=== PATIENT | male | born 1965 | race Caucasian/White ===

== ENCOUNTER 2021-03-23 15:51 | Emergency (ER) | payer MEDICARE, OTHER ==
[~2021-03-23] VITALS: Ht 167.6 cm; Wt 68.0 kg
[2021-03-23 16:17] LABS: BASOPHILS ABSOLUTE AUTO 0.02 K/mm3 (0.00-0.23); BASOPHILS PERCENT AUTO 0 % (0-2); EOSINOPHILS ABSOLUTE AUTO 0.05 K/mm3 (0.00-0.68); EOSINOPHILS PERCENT AUTO 1 % (0-6); Hematocrit 37.6 % (37.0-53.0); IMMATURE GRAN ABSOLUTE AUTO 0.01 K/mm3 (0.00-0.10); IMMATURE GRAN PERCENT AUTO 0 % (0-1); LYMPHOCYTES ABSOLUTE AUTO 1.43 K/mm3 (0.84-5.20); LYMPHOCYTES PERCENT AUTO 30 % (21-46); MONOCYTES ABSOLUTE AUTO 0.53 K/mm3 (0.16-1.47); MONOCYTES PERCENT AUTO 11 % (4-13); Mean Corpuscular HGB 31.1 pg (26.0-34.0); Mean Corpuscular HGB Conc 34.6 g/dL (31.5-36.5); Mean Corpuscular Volume 90 fL (80-100); Mean Platelet Volume 10.1 fL (9.1-12.4); NEUTROPHILS ABSOLUTE AUTO 2.76 K/mm3 (1.96-9.15); NEUTROPHILS PERCENT AUTO 58 % (41-73); Platelet Count 202 K/mm3 (150-400); RDW Coefficient Variation 11.9 % (11.7-14.2); RDW Standard Deviation 38.6 fL (35.1-46.3); Red Blood Cell Count 4.18 M/mm3 (4.30-5.90)
[2021-03-23] MEDS ORDERED: ATORVASTATIN CA20 MG PO (16:19)
[2021-03-23] MEDS ORDERED: NOVOLOG100 UNIT/2 (16:19)
[2021-03-23] MEDS ORDERED: Prinivil10 MG PO (16:19)
[2021-03-23] MEDS ORDERED: Synthroid/Levo0.2 MG PO (16:20)
[2021-03-23] MEDS ORDERED: HYDROCODONE-AC1 EAC7 PO (16:20)
[2021-03-23 16:33] LABS: International Normalized Ratio 0.9; Prothrombin Time Results 9.8 Sec (9.7-11.5)
[2021-03-23 16:41] LABS: Alanine Aminotransfer (ALT/SGP 34 U/L (12-78); Albumin, Blood 3.4 g/dL (3.4-5.0); Alk Phos 114 U/L (50-136); Anion Gap 5 mmol/L (6-16); Aspartate Aminotrans (AST/SGOT 24 U/L (12-37); Bilirubin, Total <0.1 mg/dL (0.1-1.0); Blood Urea Nitrogen 25 mg/dL (8-24); CO2, Blood 24 mmol/L (21-32); Calcium, Blood 8.7 mg/dL (8.5-10.1); Chloride, Blood 106 mmol/L (98-108); Creatinine, Blood 1.04 mg/dL (0.60-1.20); Globulin, Blood 3.5 g/dL (2.2-4.0); Glomerular Filtration Rate >60 (60-); Glucose, Blood 155 mg/dL (70-99); Potassium, Blood 4.6 mmol/L (3.5-5.5); Sodium, Blood 135 mmol/L (136-145); Total Protein, Blood 6.9 g/dL (6.4-8.2)
== END 2021-03-23 18:01 | disposition home or self-care (01) ==
LOC: ER 15:51
PROVIDERS: Physician Assistant
DX: G45.9 Transient cerebral ischemic attack, unspecified (principal); R13.10 Dysphagia, unspecified; E11.9 Type 2 diabetes mellitus without complications; Z79.899 Other long term (current) drug therapy; Z79.4 Long term (current) use of insulin; Z87.442 Personal history of urinary calculi
CPT/HCPCS: 36415; 70450; 80053; 85025; 85610; 93005; 93010; 99284-25

== ENCOUNTER 2021-11-17 21:27 | Emergency (ER) | payer MEDICARE, OTHER ==
[~2021-11-17] VITALS: Ht 167.6 cm; Wt 68.0 kg
[~2021-11-17 21:27] MED LIST: ATORVASTATIN CA20 MG PO; HYDROCODONE-AC1 EAC7 PO; NOVOLOG100 UNIT/2; Prinivil10 MG PO; Synthroid/Levo0.2 MG PO
[2021-11-17] MEDS ORDERED: BUPRENORPHINE1 EAC7 TD (23:45)
[2021-11-17] MEDS ORDERED: ESCI10 PO (23:45)
[2021-11-17] MEDS ORDERED: PLAVIX75 MG PO (23:45)
[2021-11-18] MEDS ORDERED: Crutch1 EACH XX (02:28)
[2021-11-21] MEDS ORDERED: HYDR1TAB94 PO (09:47)
== END 2021-11-18 02:16 | disposition home or self-care (01) ==
LOC: ER 21:27
DX: S82.002A Unspecified fracture of left patella, initial encounter for closed fracture (principal); E11.9 Type 2 diabetes mellitus without complications; Z79.4 Long term (current) use of insulin; Z79.899 Other long term (current) drug therapy; Z87.442 Personal history of urinary calculi; Z86.73 Personal history of transient ischemic attack (TIA), and cerebral infarction without residual deficits; W11.XXXA Fall on and from ladder, initial encounter
CPT/HCPCS: 29505; 36415; 73562-LT; 73700; 96374; 96375; 99284-25; A9270; J2270; J2405

== ENCOUNTER 2022-07-29 08:37 | Inpatient (IN) | payer MEDICARE, OTHER ==
[~2022-07-29] VITALS: Ht 167.6 cm; Wt 64.6 kg
[~2022-07-29 08:37] MED LIST changes: +BUPRENORPHINE1 EAC7 TD; +Crutch1 EACH XX; +ESCI10 PO; +HYDR1TAB94 PO; +PLAVIX75 MG PO
[2022-07-29 09:15] LABS: Source, Urine Clean Catch
[2022-07-29 09:19] LABS: Appearance, Urine Clear (Clear); Bilirubin, Urine Neg (Neg); Blood, Urine Neg (Neg); Color, Urine Yellow (P-Yellow); Glucose Qualitative, Urine 4+ (Neg); Ketones, Urine 4+ (Neg); Leukocyte Esterase, Urine Neg (Neg); Nitrite, Urine Neg (Neg); Protein, Urine 1+ (Neg); Specific Gravity, Urine 1.025 (1.003-1.022); Urobilinogen, Urine NORM (Normal)
[2022-07-29 10:12] LABS: BASOPHILS ABSOLUTE AUTO 0.04 K/mm3 (0.00-0.23); BASOPHILS PERCENT AUTO 0 % (0-2); EOSINOPHILS PERCENT AUTO 0 % (0-6); Hemoglobin 10.5 g/dL (13.5-17.5); IMMATURE GRAN ABSOLUTE AUTO 0.27 K/mm3 (0.00-0.10); IMMATURE GRAN PERCENT AUTO 1 % (0-1); LYMPHOCYTES ABSOLUTE AUTO 0.75 K/mm3 (0.84-5.20); LYMPHOCYTES PERCENT AUTO 3 % (21-46); MONOCYTES ABSOLUTE AUTO 1.25 K/mm3 (0.16-1.47); MONOCYTES PERCENT AUTO 6 % (4-13); Mean Corpuscular HGB 30.9 pg (26.0-34.0); Mean Corpuscular HGB Conc 32.8 g/dL (31.5-36.5); Mean Corpuscular Volume 94 fL (80-100); Mean Platelet Volume 10.9 fL (9.1-12.4); NEUTROPHILS ABSOLUTE AUTO 20.46 K/mm3 (1.96-9.15); NEUTROPHILS PERCENT AUTO 90 % (41-73); Platelet Count 429 K/mm3 (150-400); RDW Coefficient Variation 12.1 % (11.7-14.2); RDW Standard Deviation 41.9 fL (35.1-46.3); White Blood Cell Count 22.77 K/mm3 (4.00-11.30)
[2022-07-29 10:22] LABS: Base Excess Venous -5.9 mmol/L; PCO2 Venous 35.2 mmHg (38-42); PO2 Venous 75.5 mmHg (38-42); pH Blood Venous 7.36 (7.34-7.37)
[2022-07-29] MEDS ORDERED: BASAGLAR K100 UNIT/8 (10:24)
[2022-07-29] MEDS ORDERED: OMEP20ER PO (10:24)
[2022-07-29] MEDS ORDERED: DEPO-TESTO200 MG/18 (10:24)
[2022-07-29] MEDS ORDERED: OXYCODONE-ACET1 EAC3 PO (10:25)
[2022-07-29] MEDS ORDERED: ESCI20 PO (10:26)
[2022-07-29] MEDS ORDERED: ATORVASTATIN CA40 MG PO (10:27)
[2022-07-29] MEDS ORDERED: SYNTHROID50 MC1 PO (10:29)
[2022-07-29 10:45] LABS: Albumin, Blood 3.5 g/dL (3.4-5.0); Albumin/Globulin Ratio 1.2 (0.8-1.8); Bilirubin, Total 0.7 mg/dL (0.1-1.0); Bun/Creatinine Ratio 30.5 (12.0-20.0); Calcium, Blood 12.3 mg/dL (8.5-10.1); Creatinine, Blood 2.49 mg/dL (0.60-1.20); Potassium, Blood 5.8 mmol/L (3.5-5.5); Total Protein, Blood 6.5 g/dL (6.4-8.2)
[2022-07-29 12:32] LABS: Influenza A, PCR NEGATIVE (NEGATIVE); Influenza B, PCR NEGATIVE (NEGATIVE); Resp Syncytial Virus, PCR NEGATIVE (NEGATIVE); SARS-Cov-2 (COVID-19) PCR, MMC NEGATIVE (NEGATIVE)
[2022-07-29 13:41] LABS: Bun/Creatinine Ratio 32.1 (12.0-20.0); Calcium, Blood 10.6 mg/dL (8.5-10.1); Creatinine, Blood 2.37 mg/dL (0.60-1.20); Potassium, Blood 4.7 mmol/L (3.5-5.5)
--- NOTE | 2022-07-29 14:10 | NUR ---
PT ADMITTED TO ICU 8 FROM ER. PT IS ORIENTED BUT RESTLESS IN THE BED AND FORGETFUL. ON INSULIN GTT AND IVF. DAUGHTER ACCOMPANIES PT. NO SIGN OF DISTRESS.
[2022-07-29 14:57] LABS: Glucose, Blood 566 mg/dL (70-99)
[2022-07-29 15:23] LABS: Bun/Creatinine Ratio 34.5 (12.0-20.0); Calcium, Blood 10.9 mg/dL (8.5-10.1); Creatinine, Blood 2.26 mg/dL (0.60-1.20); Magnesium, Blood 1.6 mg/dL (1.6-2.4); Phosphorus, Blood 3.9 mg/dL (2.5-4.9); Potassium, Blood 4.4 mmol/L (3.5-5.5)
[2022-07-29 16:26] LABS: U Amphetamine Screen Not Detected; U Barbituate Screen Not Detected; U Benzodiazapine Screen Not Detected; U Buprenorphine Screen Not Detected; U Cannabinoids Screen Not Detected; U Cocaine Screen Not Detected; U Methadone Screen Not Detected; U Methamphetamine Screen Not Detected; U Opiates Screen Not Detected; U Oxycodone Screen DETECTED; U Phencyclidine Screen Not Detected; U Propoxyphene Screen Not Detected
--- NOTE | 2022-07-29 17:58 | NUR ---
SUMMARY PT NEW ADMIT THIS AFTERNOON. PT RESTLESS SINCE ADMIT, BUT IS ORIENTED. ROLLS CONSTANTLY IN BED GETTING TANGLED IN LINES. INSULIN GTT AT 7 UNITS AND NS AT 200ML/HR. GLUCOSE IS STEADILY COMING DOWN. LACTIC AND TROPONIN ALSO IMPROVING. DAUGHTER AT BEDSIDE.
[2022-07-29 19:17] LABS: Bun/Creatinine Ratio 34.3 (12.0-20.0); Calcium, Blood 10.7 mg/dL (8.5-10.1); Creatinine, Blood 2.3 mg/dL (0.60-1.20); Potassium, Blood 4.1 mmol/L (3.5-5.5)
--- NOTE | 2022-07-29 19:30 | NUR ---
PATIENT SLEEPING AWAKENS TO SLIGHT STIMULI. REPOSITIONING SELF IN BED FREQUENTLY. NEEDING FREQUENT REMINDER TO KEEP ARM STRAIGHT DUE TO IV IN AC. INSULIN DRIP 7 UNITS/HR
--- NOTE | 2022-07-29 20:34 | NUR ---
DOCTOR AMBROSIO NOTIFIED OF CORRECTING DKA CHEM. IV FLUIDS CLARIFIED AND D5 1/2NS @100/HR ORDERED. NEXT CHEM 2300
[2022-07-29 23:27] LABS: Bun/Creatinine Ratio 35.8 (12.0-20.0); Calcium, Blood 10.4 mg/dL (8.5-10.1); Creatinine, Blood 2.15 mg/dL (0.60-1.20); Magnesium, Blood 1.4 mg/dL (1.6-2.4); Phosphorus, Blood 2.3 mg/dL (2.5-4.9); Potassium, Blood 3.7 mmol/L (3.5-5.5)
--- NOTE | 2022-07-29 23:43 | NUR ---
DOCTOR ABEL NOTIFIED OF LABS, ORDER OBTAINED FOR MAG AND KPHOS REPLACEMENT
--- NOTE | 2022-07-30 03:08 | NUR ---
PATIENT MORE AWAKE AND RESTLESS, VERBALIZED THAT HE IS FEELING BETTER AND WANTS ALL OF THE IV'S OFF SO HE CAN GO HOME. EXPLAINED TO PATIENT THAT HE IS STILL ON THE INSULIN DRIP, AND IS RECEIVING ELECTROLYTES VIA IV. AND HE IS ALSO RECEIVING ANTIBIOTICS. PATIENT AGREEING TO STAY A WHILE LONGER, BUT WANTING TO GO HOME IN THE MORNING.
--- NOTE | 2022-07-30 03:36 | NUR ---
PATIENT UPSET, WANTING EVERYTHING OFF AND HE IS GOING HOME. PATIENT AGREEING TO SIT IN CHAIR AND NOT PULL OUT IV'S WHILE I CALL DOCTOR ABEL.
--- NOTE | 2022-07-30 03:58 | NUR ---
DOCTOR ROMAN NOTIFIED OF PATIENTS DESIRE TO LEAVE AMA BECAUSE HE FEELS BETTER AND HE DOESN'T WANT TO BE ATTACHED TO ICU MONITORS, IV'S ANYMORE. DOCTOR ABEL VERBALIZED THAT IF HE CONTINUES TO WANT TO LEAVE TO BE SURE AND HAVE PATIENT SIGN AMA PAPERWORK. PATIENT CONTINUES TO INSIST ON LEAVING. AMA PAPERS SIGNED. PATIENT AGREES TO KEEP IV'S RUNNING WHILE WAITING FOR HIS FAMILY TO COME PICK HIM UP. KPHOS RIDER, INSULIN 3 UNITS/HR, D5 1/2NS @100/HR AND TKO INFUSING.
--- NOTE | 2022-07-30 04:33 | NUR ---
PATIENT HOME WITH DAUGHTER LORENE AFTER REMOVING ALL IV'S AND MONITORS. PATIENT ABLE TO WALK OUT WITHOUT DIFFICULTY
== END 2022-07-30 04:35 | disposition left against medical advice (07) | DRG 871 ==
LOC: ER 08:37 → ICUW 12:07 → ICUE 13:20
PROVIDERS: Student in an Organized Health Care Education/Training Program; ADMIT Internal Medicine
DX: A41.9 Sepsis, unspecified organism (principal); E10.10 Type 1 diabetes mellitus with ketoacidosis without coma; I21.4 Non-ST elevation (NSTEMI) myocardial infarction; N17.9 Acute kidney failure, unspecified; R65.20 Severe sepsis without septic shock; Z20.822 Contact with and (suspected) exposure to COVID-19; E87.5 Hyperkalemia; E86.0 Dehydration; F41.8 Other specified anxiety disorders; G47.33 Obstructive sleep apnea (adult) (pediatric); E03.9 Hypothyroidism, unspecified; E10.40 Type 1 diabetes mellitus with diabetic neuropathy, unspecified; Z53.29 Procedure and treatment not carried out because of patient's decision for other reasons; E66.9 Obesity, unspecified; Z68.24 Body mass index [BMI] 24.0-24.9, adult; Z91.14 Patient's other noncompliance with medication regimen; Z86.73 Personal history of transient ischemic attack (TIA), and cerebral infarction without residual deficits; Z87.442 Personal history of urinary calculi; Z79.899 Other long term (current) drug therapy; Z79.4 Long term (current) use of insulin
CPT/HCPCS: 0241U; 36415; 71045; 80048; 80053; 82010; 82803; 82947; 83605; 83690; 83735; 84100; 84484; 85025; 87040; 93005; 93010; 96361; 96365; 96375; 99285-25; C9113; J0610; J1790; J1815; J2405; J2543; J2550; J3475; J7030; J7042; J7060

== ENCOUNTER → 2022-09-12 | Outpatient (CLI) | payer MEDICARE, OTHER ==
[~2022-09-12] MED LIST changes: +ATORVASTATIN CA40 MG PO; +BASAGLAR K100 UNIT/8; +DEPO-TESTO200 MG/18; +ESCI20 PO; +OMEP20ER PO; +OXYCODONE-ACET1 EAC3 PO; +SYNTHROID50 MC1 PO
[2022-09-15 15:10] LABS: FATS, NEUTRAL Normal (.); FATS, TOTAL Normal (.)
== END ==
LOC: LAB 11:06 → LAB SHORT 11:06
PROVIDERS: Internal Medicine Gastroenterology
DX: R19.4 Change in bowel habit (principal); R19.7 Diarrhea, unspecified
CPT/HCPCS: 82705

== ENCOUNTER 2023-02-11 13:40 | Day surgery (SDC) | payer MEDICARE, OTHER ==
[~2023-02-11] VITALS: Ht 167.6 cm; Wt 65.5 kg
--- NOTE | 2023-02-11 15:32 | NUR ---
02/11/23 1532 Ailin Bautista PT UPDATED REGARDING THE DELAY IN CARE WHILE WAITING FOR ANESTHESIA.
== END 2023-02-11 16:05 | disposition home or self-care (01) ==
LOC: ORSCSDS 13:40
DX: R19.4 Change in bowel habit (principal); R19.7 Diarrhea, unspecified; K62.5 Hemorrhage of anus and rectum; R63.4 Abnormal weight loss; Z53.9 Procedure and treatment not carried out, unspecified reason
CPT/HCPCS: 82947; J0330; J0461; J2001; J2405; J7120; Q9968

== ENCOUNTER 2023-02-18 08:03 | Day surgery (SDC) | payer MEDICARE, OTHER ==
[~2023-02-18] VITALS: Ht 167.6 cm; Wt 67.2 kg
[2023-02-18 08:35] VITALS: BP 145/73
[2023-02-18 11:05] VITALS: BP 126/67
--- NOTE | 2023-02-18 11:07 | NUR ---
PATIENT RETURNED TO [facility] VIA [facility]INER AND PLACED ON THE MONITOR AND CALL LIGHT IN PLACE. CIELO AT THE BEDSIDE AND DR. RAY AT THE BEDSIDE AND SPOKE TO BOTH THE PATIENT AND DAUGHTER.
[2023-02-18 11:15] VITALS: BP 121/68
--- NOTE | 2023-02-18 11:20 | NUR ---
PLAN TO TRANSFER TODAY TO [facility] FOR CABG (2 VESSEL) FROM [facility]IA GROUND TRANSFER.
[2023-02-18 11:30] VITALS: BP 124/80
[2023-02-18 12:02] VITALS: BP 143/74
--- NOTE | 2023-02-18 12:06 | NUR ---
TRANSFER BY [facility] INITATED AND BOTH HOUSE SUPERVISORS NOTIFIED. PATIENT STABLE. DAUGHTER HERE AT THE BEDSIDE
--- NOTE | 2023-02-18 12:17 | NUR ---
[facility] HERE. PATIENT TRANSFERED TO AMBULANCE STRETCHER AND REPORT GIVEN TO THE LIFT SUPERVISOR. PATIENT AAOX3, PLACED ON THE MONITOR AND STABLE VVS. DAUGHTER FOLLOWED BEHIND. CHART COPIED AND GIVEN TO THE LIFT SUPERVISOR.
== END 2023-02-18 12:15 | disposition short-term general hospital (02) ==
LOC: MHTC 08:03
DX: I25.10 Atherosclerotic heart disease of native coronary artery without angina pectoris (principal); R77.8 Other specified abnormalities of plasma proteins; R94.39 Abnormal result of other cardiovascular function study; Z88.8 Allergy status to other drugs, medicaments and biological substances; K21.9 Gastro-esophageal reflux disease without esophagitis; E03.9 Hypothyroidism, unspecified; E78.5 Hyperlipidemia, unspecified; E10.9 Type 1 diabetes mellitus without complications
CPT/HCPCS: 76937; 85347; 93458; 99152; 99153; A9270; C1725; C1769; C1887; C1894; J1644; J2250; J3010; J3246; J7030; J7050; Q9967

== ENCOUNTER → 2023-06-26 | Outpatient (CLI) | payer MEDICARE, OTHER ==
[2023-06-28 11:13] LABS: FREE TESTOSTERONE(DIRECT) 5.6 pg/mL (7.2-24.0); SEX HORM BINDING GLOB, SERUM 49.9 nmol/L (19.3-76.4)
== END ==
LOC: LAB SHORT 17:12 → LAB 17:12
PROVIDERS: Internal Medicine Endocrinology, Diabetes & Metabolism
DX: Z11.59 Encounter for screening for other viral diseases (principal); E29.1 Testicular hypofunction
CPT/HCPCS: 84270; 84402; 84403; 86803

== ENCOUNTER → 2023-09-09 | Outpatient (CLI) | payer MEDICARE, OTHER ==
[2023-09-12 13:09] LABS: CARBOXY-THC 66 (.)
== END ==
LOC: LAB SHORT 15:36 → LAB 15:36
PROVIDERS: Family Medicine
DX: Z51.81 Encounter for therapeutic drug level monitoring (principal); Z79.899 Other long term (current) drug therapy
CPT/HCPCS: G0480

== ENCOUNTER → 2023-09-12 | Outpatient (CLI) | payer MEDICARE, OTHER | END | disposition home or self-care (01) | LOC: LAB SHORT 13:52 → LAB 13:52 | DX: N18.2 Chronic kidney disease, stage 2 (mild) (principal) | CPT/HCPCS: 81050 ==

== ENCOUNTER → 2023-12-12 | Outpatient (CLI) | payer MEDICARE, OTHER ==
[2023-12-16 06:32] LABS: 11-NOR-9-CARBOXY-THC,URN,QUANT 293 ng/mL
[2023-12-16 08:46] LABS: 6-ACETYLMORPHINE, URN, QUANT <10 ng/mL; CODEINE, URN, QUANT <20 ng/mL; HYDROCODONE, URN, QUANT <20 ng/mL; HYDROMORPHONE, URN, QUANT <20 ng/mL; MORPHINE, URN, QUANT <20 ng/mL; NORHYDROCODONE, URN, QUANT <20 ng/mL; NOROXYCODONE, URN, QUANT >4000 ng/mL; NOROXYMORPHONE, URN, QUANT 173 ng/mL; OXYCODONE, URN, QUANT 1108 ng/mL; OXYMORPHONE, URN, QUANT 22 ng/mL
== END ==
LOC: LAB SHORT 14:57 → LAB 14:57
PROVIDERS: Family Medicine
DX: Z51.81 Encounter for therapeutic drug level monitoring (principal); Z79.899 Other long term (current) drug therapy
CPT/HCPCS: G0480

== ENCOUNTER 2025-06-08 10:17 | Inpatient (IN) | payer MEDICARE, OTHER ==
[~2025-06-08] VITALS: Ht 167.6 cm; Wt 59.0 kg
[2025-06-08] VITALS (12 sets, daily range): BP systolic 107–132; BP diastolic 60–89
[2025-06-08] MEDS ORDERED: NS 1,000 ML IV SCH ×3 (10:30→13:30)
[2025-06-08 10:42] LABS: BASOPHILS ABSOLUTE AUTO 0.02 K/mm3 (0.00-0.23); BASOPHILS PERCENT AUTO 0 % (0-2); EOSINOPHILS ABSOLUTE AUTO 0.01 K/mm3 (0.00-0.68); EOSINOPHILS PERCENT AUTO 0 % (0-6); Hematocrit 28.1 % (37.0-53.0); Hemoglobin 9.6 g/dL (13.5-17.5); IMMATURE GRAN ABSOLUTE AUTO 0.23 K/mm3 (0.00-0.10); IMMATURE GRAN PERCENT AUTO 2 % (0-1); LYMPHOCYTES ABSOLUTE AUTO 1.94 K/mm3 (0.84-5.20); LYMPHOCYTES PERCENT AUTO 12 % (21-46); MONOCYTES ABSOLUTE AUTO 0.86 K/mm3 (0.16-1.47); MONOCYTES PERCENT AUTO 6 % (4-13); Mean Corpuscular HGB Conc 34.2 g/dL (31.5-36.5); Mean Corpuscular Volume 92 fL (80-100); NEUTROPHILS ABSOLUTE AUTO 12.69 K/mm3 (1.96-9.15); NEUTROPHILS PERCENT AUTO 81 % (41-73); NRBC ABSOLUTE 0.00 K/mm3 (0.00-0.02); NRBC Auto 0.0 /100 WBC (0.0-0.2); Platelet Count 271 K/mm3 (150-400); RDW Coefficient Variation 12.8 % (11.7-14.2); RDW Standard Deviation 42.6 fL (35.1-46.3)
[2025-06-08 10:50] LABS: pH Blood Venous 7.11 (7.34-7.37)
[2025-06-08 11:25] LABS: Ethanol (Alcohol), Blood, Med <3 mg/dL
[2025-06-08 11:41] LABS: Alanine Aminotransfer (ALT/SGP 109 U/L (12-78); Albumin, Blood 2.9 g/dL (3.4-5.0); Albumin/Globulin Ratio 1.0 (0.8-1.8); Anion Gap 27 mmol/L (3-11); Aspartate Aminotrans (AST/SGOT 158 U/L (12-37); Bilirubin, Total 0.3 mg/dL (0.1-1.0); Blood Urea Nitrogen 57 mg/dL (8-24); CO2, Blood 14 mmol/L (21-32); Calcium, Blood 8.9 mg/dL (8.5-10.1); Chloride, Blood 90 mmol/L (98-108); Creatinine, Blood 2.59 mg/dL (0.60-1.20); Globulin, Blood 2.8 g/dL (2.2-4.0); Glucose, Blood 624 mg/dL (70-99); Potassium, Blood 3.4 mmol/L (3.5-5.5); Sodium, Blood 128 mmol/L (136-145); Total Protein, Blood 5.7 g/dL (6.4-8.2)
[2025-06-08] MEDS ORDERED: Mag Sulfate 1 GM/D5% 100ML 100 ML IV ONE (12:00)
[2025-06-08 15:00] LABS: Anion Gap 13.0 mmol/L (3-11); Blood Urea Nitrogen 54.0 mg/dL (8-24); CO2, Blood 25.0 mmol/L (21-32); Calcium, Blood 8.7 mg/dL (8.5-10.1); Chloride, Blood 93.0 mmol/L (98-108); Creatinine, Blood 2.29 mg/dL (0.60-1.20); Glucose, Blood 555.0 mg/dL (70-99); Potassium, Blood 4.8 mmol/L (3.5-5.5); Sodium, Blood 126.0 mmol/L (136-145)
[2025-06-08] MEDS ORDERED: Insulin Human Regular 100 UNIT in NS 100 ML IV SCH (15:15)
--- NOTE | 2025-06-08 16:05 | NUR ---
SHIFT SUMMARY PT ARRIVED TO ICU AT 1400. REPEAT LABS COMPLETED AT 1430. CALL AT DR ANGEL AT [address] ANGEL PLACED ORDER TO START INSULIN IV. EDUCATION PROVIDED TO PATIENT. NEURO: A/OX4, FOLLOWS COMMANDS. ABLE TO MAKE HIS NEEDS KNOWN. DROWSY. PERRLA CARDIAC: SR SBP 120S- 130S, DBP 70S. HR 70S. OCCASIONAL PVCS. HX STENT PLACEMENT AT [facility] IN [place] PER PT. HX CHF, PEDAL EDEMA PER PT. PULMONARY: LUNGS CLEAR/DIM TO AUSCULATION. DENIES ANY COUGH. GI: ABDOMEN IS SOFT/NONTENDER WITH ACTIVE BOWEL TONES. : NO UOP SINCE ARRIVAL TO ER. PT STATES HE FEELS URINE IN THERE JUST NOT QUITE READY TO GO. BLADDER SCAN 395. PT REFUSED STRAIGHT CATH. WANTS TO WAIT A WHILE. SKIN: SCATTERED ECCYMOSIS BUE/BLE. LIPOMA TO FOREHEAD- PT STATES HAS HAD FOR AWHILE. DAUGHTERS INTO VISIT ELYSSA MARTINEZ AND HIS PHONE, MICHELLE LOCKED IN CLOSET IN ROOM, 20$ PALMA NOTED IN [place].
[2025-06-08 17:56] LABS: Glucose, Blood 527 mg/dL (70-99)
[2025-06-08 19:20] LABS: Source, Urine Foley catheter
[2025-06-08 20:11] LABS: Bilirubin, Urine Neg (Neg); Glucose Qualitative, Urine 4+ (Neg); Ketones, Urine 1+ (Neg); Leukocyte Esterase, Urine Neg (Neg); Protein, Urine 2+ (Neg); Specific Gravity, Urine 1.015 (1.003-1.022); Urobilinogen, Urine NORM (Normal)
[2025-06-08 20:16] LABS: Anion Gap 14 mmol/L (3-11); Blood Urea Nitrogen 65 mg/dL (8-24); CO2, Blood 25 mmol/L (21-32); Calcium, Blood 8.8 mg/dL (8.5-10.1); Chloride, Blood 94 mmol/L (98-108); Creatinine, Blood 2.19 mg/dL (0.60-1.20); Potassium, Blood 4.8 mmol/L (3.5-5.5); Sodium, Blood 128 mmol/L (136-145)
[2025-06-08 20:16] LABS: Color, Urine Pale Yellow (P-Yellow)
[2025-06-08 20:34] LABS: U Cannabinoids Screen DETECTED
[2025-06-08 20:35] LABS: U Amphetamine Screen Not Detected; U Barbituate Screen Not Detected; U Benzodiazapine Screen Not Detected; U Buprenorphine Screen Not Detected; U Cocaine Screen Not Detected; U Methadone Screen Not Detected; U Methamphetamine Screen Not Detected; U Opiates Screen Not Detected; U Oxycodone Screen Not Detected; U Phencyclidine Screen Not Detected
[2025-06-08] MEDS ORDERED: Heparin Sodium,Porcine 5,000 UNIT/0.5 ML SDV SC SCH (21:00)
[2025-06-08 22:54] LABS: Anion Gap 9.0 mmol/L (3-11); Blood Urea Nitrogen 57.0 mg/dL (8-24); CO2, Blood 28.0 mmol/L (21-32); Calcium, Blood 8.8 mg/dL (8.5-10.1); Chloride, Blood 101.0 mmol/L (98-108); Creatinine, Blood 2.12 mg/dL (0.60-1.20); Glucose, Blood 248.0 mg/dL (70-99); Potassium, Blood 3.7 mmol/L (3.5-5.5); Sodium, Blood 134.0 mmol/L (136-145)
[2025-06-08] MEDS ORDERED: Metoclopramide HCl 5MG / ML 2ML Vial IV PRN (23:05)
--- NOTE | 2025-06-08 23:06 | NUR ---
PROVIDER NOTIFICATION LORENA (HOSPITALIST) UPDATED WITH LATEST BMP RESULTS. ORDER RECEIVED. INSULIN GTT TO BE CONTINUED PENDING NEXT LAB DRAW. VSS, PT SLEEPING AT THIS TIME.
[2025-06-09] VITALS (12 sets, daily range): BP systolic 100–157; BP diastolic 61–92
[2025-06-09] MEDS ORDERED: D5W-1/2NS KCl 20mEq 1,000 ML IV SCH (00:05)
[2025-06-09 02:35] LABS: BASOPHILS ABSOLUTE AUTO 0.01 K/mm3 (0.00-0.23); BASOPHILS PERCENT AUTO 0 % (0-2); EOSINOPHILS ABSOLUTE AUTO 0.01 K/mm3 (0.00-0.68); EOSINOPHILS PERCENT AUTO 0 % (0-6); Hematocrit 27.1 % (37.0-53.0); Hemoglobin 9.3 g/dL (13.5-17.5); IMMATURE GRAN ABSOLUTE AUTO 0.11 K/mm3 (0.00-0.10); IMMATURE GRAN PERCENT AUTO 1 % (0-1); LYMPHOCYTES ABSOLUTE AUTO 1.44 K/mm3 (0.84-5.20); LYMPHOCYTES PERCENT AUTO 10 % (21-46); MONOCYTES ABSOLUTE AUTO 1.16 K/mm3 (0.16-1.47); MONOCYTES PERCENT AUTO 8 % (4-13); Mean Corpuscular HGB Conc 34.3 g/dL (31.5-36.5); Mean Corpuscular Volume 90 fL (80-100); NEUTROPHILS ABSOLUTE AUTO 11.93 K/mm3 (1.96-9.15); NEUTROPHILS PERCENT AUTO 81 % (41-73); NRBC ABSOLUTE 0.00 K/mm3 (0.00-0.02); NRBC Auto 0.0 /100 WBC (0.0-0.2); Platelet Count 214 K/mm3 (150-400); RDW Coefficient Variation 12.9 % (11.7-14.2); RDW Standard Deviation 42.4 fL (35.1-46.3)
[2025-06-09 02:50] LABS: Anion Gap 10.0 mmol/L (3-11); Blood Urea Nitrogen 58.0 mg/dL (8-24); CO2, Blood 24.0 mmol/L (21-32); Calcium, Blood 8.5 mg/dL (8.5-10.1); Chloride, Blood 106.0 mmol/L (98-108); Creatinine, Blood 1.89 mg/dL (0.60-1.20); Glucose, Blood 175.0 mg/dL (70-99); Potassium, Blood 3.9 mmol/L (3.5-5.5); Sodium, Blood 136.0 mmol/L (136-145)
--- NOTE | 2025-06-09 06:07 | NUR ---
SHIFT SUMMARY PT REMAINS ORIENTED, BUT SLEEPY, FOLLOWS COMMANDS APPROP, WANTED TO LEAVE EARLY IN SHIFT BUT SETTLED IN WHEN DAUGHTER CONVINCED HIM TO AT LEAST STAY OVERNIGHT AND SHE'D BE BACK IN AM. PT AGREED, REMAINED COOPERATIVE WITH CBG FINGER STICKS AND INSULIN GTT. VSS T/O NIGHT, AFEBRILE. HOSPITALISTS UPDATED WITH BMP LABS T/O NIGHT. WILL UPDATE DAY RN WITH ALL OUTSTANDING ISSUES AND PROBLEMS TO DATE.
[2025-06-09 06:50] LABS: Anion Gap 10.0 mmol/L (3-11); Blood Urea Nitrogen 53.0 mg/dL (8-24); CO2, Blood 24.0 mmol/L (21-32); Calcium, Blood 8.4 mg/dL (8.5-10.1); Chloride, Blood 106.0 mmol/L (98-108); Creatinine, Blood 1.79 mg/dL (0.60-1.20); Glucose, Blood 184.0 mg/dL (70-99); Potassium, Blood 3.8 mmol/L (3.5-5.5); Sodium, Blood 136.0 mmol/L (136-145)
[2025-06-09] MEDS ORDERED: Insulin Glargine-Yfgn 100 Unit/mL 3 ML SYR SC ONE (07:50)
[2025-06-09] MEDS ORDERED: NS 1,000 ML IV SCH (09:45)
--- NOTE | 2025-06-09 11:04 | NUR ---
SHIFT SUMMARY, PENDING D/C PT TRANSITIONED FROM IV INSULIN TO LONG ACTING INSULIN GLARGINE. BG REMAINS IN 130S. DAUGHTER CALL EARLY THIS MORNING ASKED TO BRING IN INSULIN PUMP. DAUGHTER FORGOT TO BRING CONNECTION. PT ABLE TO EDUCATE ME ON THE SETTINGS AND PUMP APPLICATION. CHO 1:18, BASAL RATE 1 UNIT/HR. NEURO: A/O X4. GENERALIZED WEAKNESS. CARDIC: SR, BP STABLE SBP 100-120S. HR 70-80S. PULM: CLEAR/DIM, SLEEP APNEA, O2 >95% ON RA. PT HX ASHLEIGH DOES NOT WEAR A CPAP BUT HAS BEEN TOLD HE SHOULD.. GI: BM TODAY, ABDOMEN IS SOFT/NON TENDER. APPETITE IS DECREASED. : URINATING, YELLOW URINE UP TO TOILET. PLANNING FOR DC, AWAITING ORDERS PER
[2025-06-09] MEDS ORDERED: PANT40 PO (11:40)
== END 2025-06-09 12:00 | disposition home or self-care (01) | DRG 919 ==
LOC: ER 10:17 → ICUE 12:28
PROVIDERS: Emergency Medicine; ADMIT Family Medicine
DX: T85.694A Other mechanical complication of insulin pump, initial encounter (principal); E10.10 Type 1 diabetes mellitus with ketoacidosis without coma; G92.8 Other toxic encephalopathy; N17.9 Acute kidney failure, unspecified; E87.1 Hypo-osmolality and hyponatremia; D72.829 Elevated white blood cell count, unspecified; D64.9 Anemia, unspecified; I10 Essential (primary) hypertension; E78.5 Hyperlipidemia, unspecified; E03.9 Hypothyroidism, unspecified; K21.9 Gastro-esophageal reflux disease without esophagitis; F41.9 Anxiety disorder, unspecified; F32.A Depression, unspecified; T38.3X6A Underdosing of insulin and oral hypoglycemic [antidiabetic] drugs, initial encounter; Y82.8 Other medical devices associated with adverse incidents; I95.9 Hypotension, unspecified; I25.2 Old myocardial infarction; E86.0 Dehydration; S00.83XA Contusion of other part of head, initial encounter; W18.39XA Other fall on same level, initial encounter; E87.6 Hypokalemia; R94.31 Abnormal electrocardiogram [ECG] [EKG]; Z96.41 Presence of insulin pump (external) (internal); Z86.73 Personal history of transient ischemic attack (TIA), and cerebral infarction without residual deficits; Z88.8 Allergy status to other drugs, medicaments and biological substances; Z79.4 Long term (current) use of insulin; Z79.890 Hormone replacement therapy; Z79.02 Long term (current) use of antithrombotics/antiplatelets
CPT/HCPCS: 36415; 70450; 71045; 80048; 80053; 80320; 81001; 82803; 82947; 83036; 84484; 85025; 93005; 93010; 99285-25; J1644; J1815; J3475; J3480; J7030; J7050